=== PATIENT | male | born 1945 | race Caucasian/White ===

== ENCOUNTER 2019-05-26 16:32 | Inpatient (IN) | payer MEDICARE ==
[~2019-05-26] VITALS: Ht 167.6 cm; Wt 72.6 kg
[~2019-05-26 16:32] MED LIST: ASPI-630 PO; ATOR40TA59 PO; CLOP75TA PO; GLUC1CAP48 PO; LOSA25TA54 PO; METO25TA2 PO; MULT1TAB49 PO; OMEG-33 PO; PANT40TA77 PO; SPIR25TA5 PO; TAMS0.4C97 PO
[2019-05-26] MEDS ORDERED: SACU1TAB7 PO (18:12)
[2019-05-26] MEDS ORDERED: NITR0.4T22 SL (18:12)
[2019-05-26] MEDS ORDERED: ACETAMINOPHEN 325 MG TABLET. PO PRN (18:15)
[2019-05-26] MEDS ORDERED: POTASSIUM CL 20MEQ D5-0.45NACL 1,000 ML IV SCH (18:15)
[2019-05-26] MEDS ORDERED: MORPHINE SULFATE 2 MG/ML VIAL. IV PRN (18:15)
[2019-05-26 19:00] VITALS: BP 106/64
[2019-05-26] MEDS ORDERED: SPIR25TA5 PO (19:13)
[2019-05-26 19:26] LABS: BASO % 1 % (0-3); EOS # 0.1 x10^3/uL (0.0-0.7); EOS % 2 % (0-3); HEMATOCRIT 43.4 % (39.0-53.0); HEMOGLOBIN 14.9 g/dL (13.0-17.5); LYMPH # 1.1 x10^3/uL (1.0-4.8); LYMPH % 23 % (24-48); MEAN CORPUSCULAR HEMOGLOBIN 32 pg (25-35); MEAN CORPUSCULAR HGB CONC 34 g/dL (31-37); MEAN CORPUSCULAR VOLUME 94 fL (79-100); MONO # 0.5 x10^3/uL (0.0-1.1); MONO % 10 % (0-9); NEUT % 64 % (31-73); PLATELET COUNT 137 x10^3/uL (140-400); RED BLOOD COUNT 4.62 x10^6/uL (4.30-5.70); RED CELL DISTRIBUTION WIDTH 12.4 % (11.5-14.5); WHITE BLOOD COUNT 4.8 x10^3/uL (4.0-11.0)
[2019-05-26 19:54] LABS: ALBUMIN 3.7 g/dL (3.4-5.0); ALBUMIN/GLOBULIN RATIO 1.2 (1.0-1.7); CALCIUM 8.7 mg/dL (8.5-10.1); CREATININE 1.1 mg/dL (0.7-1.3); GFR 65.4; POTASSIUM 3.9 mmol/L (3.5-5.1); TOTAL BILIRUBIN 0.7 mg/dL (0.2-1.0); TOTAL PROTEIN 6.7 g/dL (6.4-8.2)
[2019-05-26] MEDS: SACUBITRIL/VALSARTAN 49/51MG TABLET. PO SCH (22:27)
[2019-05-26] MEDS: ATORVASTATIN CALCIUM 20 MG TABLET PO SCH (22:27)
[2019-05-26 22:54] VITALS: BP 94/52
[2019-05-26] MEDS ORDERED: CONTRAST GIVEN. MC PRN (23:15)
[2019-05-26] MEDS ORDERED: IOHEXOL 300 MG/ML 100ML VIAL. IV ONE (23:30)
--- NOTE | 2019-05-26 23:47 | RAD ---
CT abdomen and pelvis with contrast PQRS statement: CT scans at this facility use dose reduction including either automated exposure control, iterative reconstructions, and /or weight based radiation dosing via mA and kV modification when appropriate to reduce radiation dose to as low as reasonably achievable. HISTORY: Abdominal pain. TECHNIQUE: Helical CT imaging abdomen and pelvis with 75 mL Omnipaque 300 venous contrast. Abdomen findings: Lung bases unremarkable. Cardiomegaly. Grade 1 L4 anterolisthesis, lower lumbar disc disease and arthritic changes spinal canal and neural foraminal stenoses. At the pancreas uncinate is a 1 cm hypervascular lesion. Liver, gallbladder, adrenal glands, spleen and right kidney are unremarkable. Left renal lower pole parapelvic cysts. There is mild fold thickening of the third and fourth segments of the duodenum and of the proximal jejunum at the left upper quadrant abdomen. No bowel obstruction. Appendix is negative. Sigmoid diverticulosis. 3 center fatty umbilical abdominal wall hernia. No abdominal fluid or adenopathy. Pelvis findings: Bladder, prostate, rectum and bones are unremarkable. No fluid or adenopathy. IMPRESSION: 1. Mild fold thickening of the duodenum and proximal jejunum likely representing enteritis. No bowel obstruction. 2. The appendix is negative. 3. 1 cm hypervascular lesion of the pancreas uncinate. This raises the possibility of an islet cell tumor of the pancreas. An aneurysm within the pancreas would be a secondary consideration. 4. 3 center fatty umbilical abdominal wall hernia. Electronically signed by: Lencho Valenzuela MD (05/26/2019 11:44 PM) [id number]
[2019-05-27 02:36] VITALS: BP 92/57
[2019-05-27 06:56] LABS: BASO % 1 % (0-3); EOS # 0.1 x10^3/uL (0.0-0.7); EOS % 2 % (0-3); HEMATOCRIT 42.4 % (39.0-53.0); HEMOGLOBIN 14.4 g/dL (13.0-17.5); LYMPH # 0.9 x10^3/uL (1.0-4.8); LYMPH % 20 % (24-48); MEAN CORPUSCULAR HEMOGLOBIN 32 pg (25-35); MEAN CORPUSCULAR HGB CONC 34 g/dL (31-37); MEAN CORPUSCULAR VOLUME 94 fL (79-100); MONO # 0.5 x10^3/uL (0.0-1.1); MONO % 11 % (0-9); NEUT # 2.8 x10^3/uL (1.8-7.7); NEUT % 67 % (31-73); PLATELET COUNT 138 x10^3/uL (140-400); RED BLOOD COUNT 4.49 x10^6/uL (4.30-5.70); RED CELL DISTRIBUTION WIDTH 12.7 % (11.5-14.5); WHITE BLOOD COUNT 4.2 x10^3/uL (4.0-11.0)
[2019-05-27 07:00] VITALS: BP 100/61
[2019-05-27 07:26] LABS: CALCIUM 8.7 mg/dL (8.5-10.1); CREATININE 1.1 mg/dL (0.7-1.3); GFR 65.4; POTASSIUM 3.9 mmol/L (3.5-5.1)
[2019-05-27] MEDS: PANTOPRAZOLE 40 MG TABLET.DR. PO SCH (08:08)
[2019-05-27] MEDS: ASPIRIN CHEWABLE 81 MG TABLET. PO SCH (08:09)
[2019-05-27] MEDS: TAMSULOSIN 0.4 MG CAP.ER.24H. PO SCH (08:10)
[2019-05-27] MEDS: METOPROLOL SUCC 24HR ER 25 MG TAB.ER.24H. PO SCH (08:11)
[2019-05-27] MEDS: SPIRONOLACTONE 25 MG TABLET PO SCH (09:00)
--- NOTE | 2019-05-27 09:57 | CARD ---
MR#: [id number] Date of Study: 05/27/2019 Ordering Physician: FRANK GAYTAN, Referring Physician: FRANK GAYTAN Tech: Yamilka Ruiz RDCS APPROVED REPORT EXAM: Two-dimensional and M-mode echocardiogram with Doppler and color Doppler. Other Information Quality : Good INDICATION LV Function:Systolic Surgery/Intervention ICD/Pacemaker: 2D DIMENSIONS RVDd2.6 (2.9-3.5cm)Left Atrium(2D)4.1 (1.6-4.0cm) IVSd0.9 (0.7-1.1cm)Aortic Root(2D)3.0 (2.0-3.7cm) LVDd4.8 (3.9-5.9cm)LVOT Diameter2.2 (1.8-2.4cm) PWd0.9 (0.7-1.1cm)LVDs4.3 (2.5-4.0cm) FS (%) 10.0 %SV79.7 ml LVEF(%)20.0 (>50%) Aortic Valve AoV Peak Lee.87.5cm/sAoV VTI17.4cm AO Peak GR.3.1mmHgLVOT Peak Lee.71.5cm/s AO Mean GR.2mmHgAVA (VMAX)3.23cm2 STEPHANIE (VTI)3.10cm2 Mitral Valve MV E Bkyxmfoj68.9cm/sMV DECEL HAKF382id MV A Prqnwmxo253.6cm/sE/A Ratio0.5 Tricuspid Valve TR P. Dyssuiqa890gr/sRAP DXDSIWLT6wsZi TR Peak Gr.01oiWwVUGK60qqZi Pulmonary Vein S1 Arweffkh53.6cm/sD2 Mrcyosmy95.1cm/s LEFT VENTRICLE The left ventricle is normal size. There is normal left ventricular wall thickness. Left ventricle sy stolic function is severely impaired. The Ejection Fraction is 20-25%. Apical wall motion consistent with pacemaker activation. Transmitral Doppler flow pattern is Grade I-abnormal relaxation pattern. RIGHT VENTRICLE The right ventricle is normal size. The right ventricular systolic function is normal. There is a pac emaker/ICD lead in the right ventricle. ATRIA The left atrium is mildly dilated. The right atrium is mildly dilated. A pacemaker/ICD is seen in the right atrium consistent with history. The interatrial septum is intact with no evidence for an atria l septal defect or patent foramen ovale as noted on 2-D or Doppler imaging. AORTIC VALVE The aortic valve is calcified but opens well. Doppler and Color Flow revealed no significant aortic r egurgitation. There is no significant aortic valvular stenosis. MITRAL VALVE The mitral valve is normal in structure and function. There is no evidence of mitral valve prolapse. There is no mitral valve stenosis. Doppler and Color-flow revealed trace mitral regurgitation. TRICUSPID VALVE The tricuspid valve is normal in structure and function. Doppler and Color Flow revealed mild tricusp id regurgitation. There is mild pulmonary hypertension. The PA pressure was estimated at 35 mmHg. The re is no tricuspid valve stenosis. PULMONIC VALVE The pulmonic valve is not well visualized. Doppler and Color Flow revealed trace pulmonic valvular re gurgitation. There is no pulmonic valvular stenosis. GREAT VESSELS The aortic root is normal in size. The ascending aorta is mildly dilated at 3.7 cm. The IVC was not v isualized. PERICARDIAL EFFUSION There is no evidence of significant pericardial effusion. Critical Notification Critical Value: No <Conclusion> Left ventricle systolic function is severely impaired. The Ejection Fraction is 20-25%. Transmitral Doppler flow pattern is Grade I-abnormal relaxation pattern. There is a pacemaker/ICD lead in the right atrium and right ventricle. Trace mitral regurgitation. Mild tricuspid regurgitation. The PA pressure was estimated at 35 mmHg. There is no evidence of significant pericardial effusion. Signed by : Riley Ugalde, Electronically Approved : 05/27/2019 09:57:11
[2019-05-27] MEDS: SACUBITRIL/VALSARTAN 49/51MG TABLET. PO SCH ×2 (10:01→21:17)
--- NOTE | 2019-05-27 10:02 | RAD ---
CHEST PA LATERAL History: Abdominal pain. Comparison: July 08, 2019. Findings: Left transvenous pacemaker/ICD, unchanged. Left basilar subsegmental atelectasis. Unchanged heart size. No focal consolidation. No pleural effusion. Impression: 1. Left basilar subsegmental atelectasis. Electronically signed by: Milton Wu DO (05/27/2019 9:59 AM) [id number]
--- NOTE | 2019-05-27 10:03 | PDOC2 ---
GI CONSULT Reason For Consult: Abd pain HPI: HPI: Pleasant 74 y/o male who saw Dr. Lynn in the office yesterday and was directly admitted. Reports 3 weeks of upper abdominal discomfort ("just hurts" - mostly RUQ and sometimes spreading to epigastrium and LUQ, maybe wrapping around right side some). Mostly bothersome after eating. Reports h/o "what they thought was gallbladder attacks but the test was okay" - this discomfort is similar to those instances. Had a GB US at a few years ago - says they recommended HIDA w/ PCP (not done). No n/v, dysphagia, constipation, hematochezia, melena, or change in appetite. Had a couple instances of diarrhea that resolved. His scale is broken but he assumes no weight loss. H/o occasional indigestion - takes Tums and also on pantoprazole QD "because of the heart meds." Sometimes umbilical hernia hurts if he pushes on it. EGD and colonoscopy w/ Dr. Bhandari in 2014 for abd pain and weight loss showed small hiatal hernia and diverticulosis. No liver, pancreas, or PUD history. H/o CAD on Plavix and ASA. On CT: mild fold thickening in duodenum and proximal jejunum, 1cm hypervascular lesion in pancreas uncinate (?islet cell tumor), and umbilical abd wall hernia. PMH: PMH: cardiomyopathy, CAD w/ stent, HTN, HLD, BPH right shoulder scraping, tonsillectomy, skin excision FH: Family History: Other (sister - GB disease) Social History: Smoke: No ALCOHOL: occassional Drugs: None ROS: GEN: Denies fevers, chills, sweats HEENT: Denies blurred vision, sore throat CV: Denies chest pain RESP: Denies shortness of air, cough GI: Per HPI : Denies hematuria, dysuria ENDO: Denies weight changes NEURO: Denies confusion, dizziness MSK: Denies weakness, joint pain/swelling SKIN: Denies jaundice, pruritus Vitals: Vitals: Vital Signs Date Time Temp Pulse Resp B/P (MAP) Pulse Ox O2 Delivery O2 Flow Rate FiO2 05/27/19 10:01 74 100/61 05/27/19 07:00 99.0 14 98 Room Air 99.0 Labs: Labs: Laboratory Tests Test 05/26/19 19:15 9/18/19 05:40 White Blood Count 4.8 x10^3/uL (4.0-11.0) 4.2 x10^3/uL (4.0-11.0) Red Blood Count 4.62 x10^6/uL (4.30-5.70) 4.49 x10^6/uL (4.30-5.70) Hemoglobin 14.9 g/dL (13.0-17.5) 14.4 g/dL (13.0-17.5) Hematocrit 43.4 % (39.0-53.0) 42.4 % (39.0-53.0) Mean Corpuscular Volume 94 fL (79-100) 94 fL (79-100) Mean Corpuscular Hemoglobin 32 pg (25-35) 32 pg (25-35) Mean Corpuscular Hemoglobin Concent 34 g/dL (31-37) 34 g/dL (31-37) Red Cell Distribution Width 12.4 % (11.5-14.5) 12.7 % (11.5-14.5) Platelet Count 137 x10^3/uL (140-400) 138 x10^3/uL (140-400) Neutrophils (%) (Auto) 64 % (31-73) 67 % (31-73) Lymphocytes (%) (Auto) 23 % (24-48) 20 % (24-48) Monocytes (%) (Auto) 10 % (0-9) 11 % (0-9) Eosinophils (%) (Auto) 2 % (0-3) 2 % (0-3) Basophils (%) (Auto) 1 % (0-3) 1 % (0-3) Neutrophils # (Auto) 3.0 x10^3/uL (1.8-7.7) 2.8 x10^3/uL (1.8-7.7) Lymphocytes # (Auto) 1.1 x10^3/uL (1.0-4.8) 0.9 x10^3/uL (1.0-4.8) Monocytes # (Auto) 0.5 x10^3/uL (0.0-1.1) 0.5 x10^3/uL (0.0-1.1) Eosinophils # (Auto) 0.1 x10^3/uL (0.0-0.7) 0.1 x10^3/uL (0.0-0.7) Basophils # (Auto) 0.0 x10^3/uL (0.0-0.2) 0.0 x10^3/uL (0.0-0.2) Sodium Level 142 mmol/L (136-145) 143 mmol/L (136-145) Potassium Level 3.9 mmol/L (3.5-5.1) 3.9 mmol/L (3.5-5.1) Chloride Level 108 mmol/L (98-107) 109 mmol/L (98-107) Carbon Dioxide Level 25 mmol/L (21-32) 25 mmol/L (21-32) Anion Gap 9 (6-14) 9 (6-14) Blood Urea Nitrogen 17 mg/dL (8-26) 14 mg/dL (8-26) Creatinine 1.1 mg/dL (0.7-1.3) 1.1 mg/dL (0.7-1.3) Estimated GFR (Cockcroft-Gault) 65.4 65.4 BUN/Creatinine Ratio 15 (6-20) Glucose Level 84 mg/dL (70-99) 95 mg/dL (70-99) Calcium Level 8.7 mg/dL (8.5-10.1) 8.7 mg/dL (8.5-10.1) Total Bilirubin 0.7 mg/dL (0.2-1.0) Aspartate Amino Transf (AST/SGOT) 19 U/L (15-37) Alanine Aminotransferase (ALT/SGPT) 22 U/L (16-63) Alkaline Phosphatase 65 U/L (46-116) Total Protein 6.7 g/dL (6.4-8.2) Albumin 3.7 g/dL (3.4-5.0) Albumin/Globulin Ratio 1.2 (1.0-1.7) Amylase Level 50 U/L (25-115) Lipase 140 U/L (73-393) Allergies: Coded Allergies: ramipril (Verified Allergy, Intermediate, 05/27/19) cough thimerosal (Verified Allergy, Intermediate, 04/25/15) reddened eyes Medications: Current Medications Medications (Trade) Dose Ordered Sig/Ren Route PRN Reason Start Time Stop Time Status Last Admin Dose Admin Potassium Chloride/Dextrose/ Sod Cl 1,000 ml @ 60 mls/hr [id number] IV 05/26/19 18:15 05/26/19 19:47 Metronidazole 100 ml @ 100 mls/hr Q8HRS IV 05/26/19 22:00 05/27/19 07:19 DC 05/27/19 05:50 Levofloxacin/ Dextrose 100 ml @ 100 mls/hr Q24H IV 05/26/19 19:00 05/27/19 07:19 DC 05/26/19 19:47 Aspirin (Children'S Aspirin) 81 mg DAILY PO 05/27/19 09:00 05/27/19 08:15 Atorvastatin Calcium (Lipitor) 20 mg QHS PO 05/26/19 21:00 05/26/19 22:27 Metoprolol Succinate (Toprol Xl) 25 mg DAILY PO 05/27/19 09:00 05/27/19 08:15 Pantoprazole Sodium (Protonix) 40 mg DAILYAC PO 05/27/19 07:30 05/27/19 08:15 Sacubitril/ Valsartan (Entresto 49 Mg-51 Mg) 1 tab BID PO 05/26/19 21:00 05/27/19 10:01 Tamsulosin HCl (Flomax) 0.4 mg DAILY PO 05/27/19 09:00 05/27/19 08:15 Imaging: Imaging: Echo <Conclusion> Left ventricle systolic function is severely impaired. The Ejection Fraction is 20-25%. Transmitral Doppler flow pattern is Grade I-abnormal relaxation pattern. There is a pacemaker/ICD lead in the right atrium and right ventricle. Trace mitral regurgitation. Mild tricuspid regurgitation. The PA pressure was estimated at 35 mmHg. There is no evidence of significant pericardial effusion. CXR Impression: 1. Left basilar subsegmental atelectasis. CT A/P IMPRESSION: 1. Mild fold thickening of the duodenum and proximal jejunum likely representing enteritis. No bowel obstruction. 2. The appendix is negative. 3. 1 cm hypervascular lesion of the pancreas uncinate. This raises the possibility of an islet cell tumor of the pancreas. An aneurysm within the pancreas would be a secondary consideration. 4. 3 center fatty umbilical abdominal wall hernia. PE: GEN: NAD HEENT: Atraumatic, PERRL LUNGS: CTAB HEART: RRR ABD: NABS, S/ND - does not seem particularly tender this morning EXTREMITY: No edema SKIN: No rashes, no jaundice NEURO/PSYCH: A & O �3 A/P: A/P: Upper abd discomfort (ongoing), diarrhea (resolved) Abnormal CT - mild fold thickening in duodenum and proximal jejunum, 1cm hypervascular lesion in pancreas uncinate (?islet cell tumor), and umbilical abd wall hernia. GERD - on PPI and Tums; hiatal hernia on EGD in 2014 CRC screen - UTD Diverticulosis Thrombocytopenia Cardiomyopathy and CAD on Plavix and ASA -- Will review w/ Dr. Meng. TANMAY BURLESON May 27, 2019 10:03
--- NOTE | 2019-05-27 10:07 | PDOC2 ---
GI CONSULT Vitals: Vitals: Vital Signs Allergies: Coded Allergies: ramipril (Verified Allergy, Intermediate, 05/27/19) cough thimerosal (Verified Allergy, Intermediate, 04/25/15) reddened eyes A/P: A/P: Please see GI consult for this same date. TANMAY BURLESON May 27, 2019 10:07
[2019-05-27] MEDS ORDERED: HYDROcodone/APAP 5/325MG 1 TAB TABLET PO PRN (10:30)
--- NOTE | 2019-05-27 10:39 | PDOC ---
Provider Note Provider Note history and physical dictated # [id number] FRANK GAYTAN MD May 27, 2019 10:39
--- NOTE | 2019-05-27 10:42 | PDOC2 ---
CONSULT Date of Consult Date of Consult DATE: 05/27/19 TIME: 10:37 History of Present Illness Reason for Visit: The patient is a 74 year old male who was admitted after seeing his PCP, Dr Lynn. The patient has been experiencing abdominal pain over the last 3 weeks. The pain can migrate moving from the right to the mid abdomen. The pain is at times achy and dull, but can intensify. He denies nausea or vomiting, but does report some limited diarrhea. Past Medical History Past Medical History enlarged prostate, [place], CAD, cardiomyopathy, hypertension Past Surgical History Past Surgical History pacemaker, shoulder surgery, excision of skin lesion from shoulder Social History No ALCOHOL: occassional Drugs: None Current Medications Current Medications Current Medications Potassium Chloride/Dextrose/ Sod Cl 1,000 ml @ 60 mls/hr [id number] IV Last administered on 05/26/19at 19:47; Start 05/26/19 at 18:15; Stop 05/27/19 at 10:28; Status DC Morphine Sulfate (Morphine Sulfate) 1 mg PRN Q4HRS PRN IV PAIN; Start 05/26/19 at 18:15 Acetaminophen (Tylenol) 325 mg PRN Q6HRS PRN PO MILD PAIN / TEMP; Start 05/26/19 at 18:15 Metronidazole 100 ml @ 100 mls/hr Q8HRS IV Last administered on 05/27/19at 05:50; Start 05/26/19 at 22:00; Stop 05/27/19 at 07:19; Status DC Levofloxacin/ Dextrose 100 ml @ 100 mls/hr Q24H IV Last administered on 05/26/19at 19:47; Start 05/26/19 at 19:00; Stop 05/27/19 at 07:19; Status DC Aspirin (Children'S Aspirin) 81 mg DAILY PO Last administered on 05/27/19at 08:15; Start 05/27/19 at 09:00 Atorvastatin Calcium (Lipitor) 20 mg QHS PO Last administered on 05/26/19at 22:27; Start 05/26/19 at 21:00 Metoprolol Succinate (Toprol Xl) 25 mg DAILY PO Last administered on 05/27/19at 08:15; Start 05/27/19 at 09:00 Pantoprazole Sodium (Protonix) 40 mg DAILYAC PO Last administered on 05/27/19at 08:15; Start 05/27/19 at 07:30 Sacubitril/ Valsartan (Entresto 49 Mg-51 Mg) 1 tab BID PO Last administered on 05/27/19at 10:01; Start 05/26/19 at 21:00 Tamsulosin HCl (Flomax) 0.4 mg DAILY PO Last administered on 05/27/19at 08:15; Start 05/27/19 at 09:00 Spironolactone (Aldactone) 25 mg DAILY PO ; Start 05/27/19 at 09:00 Iohexol (Omnipaque 300 Mg/ml) 75 ml 1X ONCE IV ; Start 05/26/19 at 23:30; Stop 05/26/19 at 23:31; Status DC Info (CONTRAST GIVEN -- Rx MONITORING) 1 each PRN DAILY PRN MC SEE COMMENTS; Start 05/26/19 at 23:15; Stop 05/28/19 at 23:14 Acetaminophen/ Hydrocodone Bitart (Lortab 5/325) 1 tab PRN Q4HRS PRN PO MODERATE PAIN; Start 05/27/19 at 10:30 Active Scripts Active Reported Spironolactone 25 Mg Tablet 1 Tab PO DAILY Entresto 49 mg-51 mg Tablet (Sacubitril/Valsartan) 1 Each Tablet 1 Each PO BID NITROGLYCERIN SubLingual (Nitroglycerin) 0.4 Mg Tab.subl 1 Tab SL UD Pantoprazole Sodium (Pantoprazole Sodium) 40 Mg Tablet.dr 40 Mg PO DAILY Toprol Xl (Metoprolol Succinate) 25 Mg Tab.er.24h 25 Mg PO DAILY Flomax (Tamsulosin Hcl) 0.4 Mg Cap.er.24h 0.4 Mg PO DAILY Clopidogrel (Clopidogrel Bisulfate) 75 Mg Tablet 75 Mg PO DAILY Aspirin 81 Mg Tab.chew 81 Mg PO DAILY Atorvastatin Calcium 40 Mg Tablet 40 Mg PO HS Losartan Potassium (Losartan Potassium) 25 Mg Tablet 25 Mg PO DAILY Allergies Allergies: Coded Allergies: ramipril (Verified Allergy, Intermediate, 05/27/19) cough thimerosal (Verified Allergy, Intermediate, 04/25/15) reddened eyes ROS General: No: Chills, Night Sweats, Fatigue, Malaise, Appetite, Other PSYCHOLOGICAL ROS: No: Anxiety, Behavioral Disorder, Concentration difficultie, Decreased libido, Depression, Disorientation, Hallucinations, Hostility, Irritablity, Memory difficulties, Mood Swings, Obsessive thoughts, Physical abuse, Sexual abuse, Sleep disturbances, Suicidal ideation, Other Eyes: No Blurry vision, No Decreased vision, No Double vision, No Dry eyes, No Excessive tearing, No Eye Pain, No Itchy Eyes, No Loss of vision, No Photophobia, No Scotomata, No Uses contacts, No Uses glasses, No Other HEENT: No: Heacaches, Visual Changes, Hearing change, Nasal congestion, Nasal discharge, Oral lesions, Sinus pain, Sore Throat, Epistaxis, Sneezing, Snoring, Tinnitus, Vertigo, Vocal changes, Other ALLERGY AND IMMUNOLOGY: No: Hives, Insect Bite Sensitivity, Itchy/Watery Eyes, Nasal Congestion, Post Nasal Drip, Seasonal Allergies, Other Hematological and Lymphatic: No: Bleeding Problems, Blood Clots, Blood Transfusions, Brusing, Night Sweats, Pallor, Swollen Lymph Nodes, Other ENDOCRINE: No: Breast Changes, Galactorrhea, Hair Pattern Changes, Hot Flashes, Malaise/lethargy, Mood Swings, Palpitations, Polydipsia/polyuria, Skin Changes, Temperature Intolerance, Unexpected Weight Changes, Other Cardiovascular: No Chest Pain, No Palpitations, No Orthopnea, No Paroxysmal Noc. Dyspnea, No Edema, No Lt Headedness, No Other Gastrointestinal: Yes Abdominal Pain Genitourinary: No Dysuria, No Frequency, No Incontinence, No Hematuria, No Retention, No Discharge, No Urgency, No Pain, No Flank Pain, No Other, No , No , No , No , No , No , No Musculoskeletal: No Gait Disturbance, No Joint Pain, No Joint Stiffness, No Joint Swelling, No Muscle Pain, No Muscular Weakness, No Pain In:, No Swelling In:, No Other Neurological: No Behavorial Changes, No Bowel/Bladder ControlChng, No Confusion, No Dizziness, No Gait Disturbance, No Headaches, No Impaired Coord/balance, No Memory Loss, No Numbness/Tingling, No Seizures, No Speech Problems, No Tremors, No Visual Changes, No Weakness, No Other Skin: No Dry Skin, No Eczema, No Hair Changes, No Lumps, No Mole Changes, No Mottling, No Nail Changes, No Pruritus, No Rash, No Skin Lesion Changes, No Other, No Acne Physical Exam General: Alert, Oriented X3, Cooperative HEENT: Atraumatic Lungs: Clear to auscultation Heart: Regular rate Abdomen: Soft Extremities: No clubbing (mildly tender just right of midline in upper abdomen, small reducible umbilical hernia) Skin: No rashes, No breakdown Neuro: Normal speech Psych/Mental Status: Mental status NL MUSCULOSKELETAL: No joint tenderness, No deformity Vitals VITALS Vital Signs Date Time Temp Pulse Resp B/P (MAP) Pulse Ox O2 Delivery O2 Flow Rate FiO2 05/27/19 10:01 74 100/61 05/27/19 07:00 99.0 14 98 Room Air 99.0 Labs Labs Laboratory Tests Test 05/26/19 19:15 05/27/19 05:40 White Blood Count 4.8 x10^3/uL (4.0-11.0) 4.2 x10^3/uL (4.0-11.0) Red Blood Count 4.62 x10^6/uL (4.30-5.70) 4.49 x10^6/uL (4.30-5.70) Hemoglobin 14.9 g/dL (13.0-17.5) 14.4 g/dL (13.0-17.5) Hematocrit 43.4 % (39.0-53.0) 42.4 % (39.0-53.0) Mean Corpuscular Volume 94 fL (79-100) 94 fL (79-100) Mean Corpuscular Hemoglobin 32 pg (25-35) 32 pg (25-35) Mean Corpuscular Hemoglobin Concent 34 g/dL (31-37) 34 g/dL (31-37) Red Cell Distribution Width 12.4 % (11.5-14.5) 12.7 % (11.5-14.5) Platelet Count 137 x10^3/uL (140-400) 138 x10^3/uL (140-400) Neutrophils (%) (Auto) 64 % (31-73) 67 % (31-73) Lymphocytes (%) (Auto) 23 % (24-48) 20 % (24-48) Monocytes (%) (Auto) 10 % (0-9) 11 % (0-9) Eosinophils (%) (Auto) 2 % (0-3) 2 % (0-3) Basophils (%) (Auto) 1 % (0-3) 1 % (0-3) Neutrophils # (Auto) 3.0 x10^3/uL (1.8-7.7) 2.8 x10^3/uL (1.8-7.7) Lymphocytes # (Auto) 1.1 x10^3/uL (1.0-4.8) 0.9 x10^3/uL (1.0-4.8) Monocytes # (Auto) 0.5 x10^3/uL (0.0-1.1) 0.5 x10^3/uL (0.0-1.1) Eosinophils # (Auto) 0.1 x10^3/uL (0.0-0.7) 0.1 x10^3/uL (0.0-0.7) Basophils # (Auto) 0.0 x10^3/uL (0.0-0.2) 0.0 x10^3/uL (0.0-0.2) Sodium Level 142 mmol/L (136-145) 143 mmol/L (136-145) Potassium Level 3.9 mmol/L (3.5-5.1) 3.9 mmol/L (3.5-5.1) Chloride Level 108 mmol/L (98-107) 109 mmol/L (98-107) Carbon Dioxide Level 25 mmol/L (21-32) 25 mmol/L (21-32) Anion Gap 9 (6-14) 9 (6-14) Blood Urea Nitrogen 17 mg/dL (8-26) 14 mg/dL (8-26) Creatinine 1.1 mg/dL (0.7-1.3) 1.1 mg/dL (0.7-1.3) Estimated GFR (Cockcroft-Gault) 65.4 65.4 BUN/Creatinine Ratio 15 (6-20) Glucose Level 84 mg/dL (70-99) 95 mg/dL (70-99) Calcium Level 8.7 mg/dL (8.5-10.1) 8.7 mg/dL (8.5-10.1) Total Bilirubin 0.7 mg/dL (0.2-1.0) Aspartate Amino Transf (AST/SGOT) 19 U/L (15-37) Alanine Aminotransferase (ALT/SGPT) 22 U/L (16-63) Alkaline Phosphatase 65 U/L (46-116) Total Protein 6.7 g/dL (6.4-8.2) Albumin 3.7 g/dL (3.4-5.0) Albumin/Globulin Ratio 1.2 (1.0-1.7) Amylase Level 50 U/L (25-115) Lipase 140 U/L (73-393) Laboratory Tests Test 05/26/19 19:15 05/27/19 05:40 White Blood Count 4.8 x10^3/uL (4.0-11.0) 4.2 x10^3/uL (4.0-11.0) Red Blood Count 4.62 x10^6/uL (4.30-5.70) 4.49 x10^6/uL (4.30-5.70) Hemoglobin 14.9 g/dL (13.0-17.5) 14.4 g/dL (13.0-17.5) Hematocrit 43.4 % (39.0-53.0) 42.4 % (39.0-53.0) Mean Corpuscular Volume 94 fL (79-100) 94 fL (79-100) Mean Corpuscular Hemoglobin 32 pg (25-35) 32 pg (25-35) Mean Corpuscular Hemoglobin Concent 34 g/dL (31-37) 34 g/dL (31-37) Red Cell Distribution Width 12.4 % (11.5-14.5) 12.7 % (11.5-14.5) Platelet Count 137 x10^3/uL (140-400) 138 x10^3/uL (140-400) Neutrophils (%) (Auto) 64 % (31-73) 67 % (31-73) Lymphocytes (%) (Auto) 23 % (24-48) 20 % (24-48) Monocytes (%) (Auto) 10 % (0-9) 11 % (0-9) Eosinophils (%) (Auto) 2 % (0-3) 2 % (0-3) Basophils (%) (Auto) 1 % (0-3) 1 % (0-3) Neutrophils # (Auto) 3.0 x10^3/uL (1.8-7.7) 2.8 x10^3/uL (1.8-7.7) Lymphocytes # (Auto) 1.1 x10^3/uL (1.0-4.8) 0.9 x10^3/uL (1.0-4.8) Monocytes # (Auto) 0.5 x10^3/uL (0.0-1.1) 0.5 x10^3/uL (0.0-1.1) Eosinophils # (Auto) 0.1 x10^3/uL (0.0-0.7) 0.1 x10^3/uL (0.0-0.7) Basophils # (Auto) 0.0 x10^3/uL (0.0-0.2) 0.0 x10^3/uL (0.0-0.2) Sodium Level 142 mmol/L (136-145) 143 mmol/L (136-145) Potassium Level 3.9 mmol/L (3.5-5.1) 3.9 mmol/L (3.5-5.1) Chloride Level 108 mmol/L (98-107) 109 mmol/L (98-107) Carbon Dioxide Level 25 mmol/L (21-32) 25 mmol/L (21-32) Anion Gap 9 (6-14) 9 (6-14) Blood Urea Nitrogen 17 mg/dL (8-26) 14 mg/dL (8-26) Creatinine 1.1 mg/dL (0.7-1.3) 1.1 mg/dL (0.7-1.3) Estimated GFR (Cockcroft-Gault) 65.4 65.4 BUN/Creatinine Ratio 15 (6-20) Glucose Level 84 mg/dL (70-99) 95 mg/dL (70-99) Calcium Level 8.7 mg/dL (8.5-10.1) 8.7 mg/dL (8.5-10.1) Total Bilirubin 0.7 mg/dL (0.2-1.0) Aspartate Amino Transf (AST/SGOT) 19 U/L (15-37) Alanine Aminotransferase (ALT/SGPT) 22 U/L (16-63) Alkaline Phosphatase 65 U/L (46-116) Total Protein 6.7 g/dL (6.4-8.2) Albumin 3.7 g/dL (3.4-5.0) Albumin/Globulin Ratio 1.2 (1.0-1.7) Amylase Level 50 U/L (25-115) Lipase 140 U/L (73-393) Images Images CT abdomen: IMPRESSION: 1. Mild fold thickening of the duodenum and proximal jejunum likely representing enteritis. No bowel obstruction. 2. The appendix is negative. 3. 1 cm hypervascular lesion of the pancreas uncinate. This raises the possibility of an islet cell tumor of the pancreas. An aneurysm within the pancreas would be a secondary consideration. 4. 3 center fatty umbilical abdominal wall hernia. Assessment/Plan Assessment/Plan 74 year old male with abdominal pain, CT findings noted; suspect enteritis, small 1 cm pancreatic mass likely incidental. No immediate surgical indications, GI consulted and await their evaluation. Consider a PIPIDA scan. TERE LOPES MD May 27, 2019 10:42
--- NOTE | 2019-05-27 10:52 | PDOC2 ---
GENEVIEVE MCHUGH MERCHANDISING DIRECTOR 05/27/19 1052: CARDIAC CONSULT DATE OF CONSULT Date of Consult DATE: 05/27/19 TIME: 10:50 REASON FOR CONSULT Reason for Consult: hx of cardiomyopathy REFERRING PHYSICIAN Referring Physician: Leah SOURCE Source: Chart review, Patient HISTORY OF PRESENT ILLNESS HISTORY OF PRESENT ILLNESS This is a pleasant 74 yo male admitted for complains of abdominal pain. Reports that this just started this week. His abd is tender especially when pressed. Reports no nause or vomiting and actually had a BM yesterday that was formed. Denies any chest pain, SOA. Consult is for cardiomyopathy which is not new for him but his EF is now down from 35% to 20s. No PND, orthopnea, palpitations, fr equent dizziness, or passing out. No leg swelling. He weighs himself everyday till his scale broke last week. He follows his diet restriction and FR. His activity tolerance has not chnaged and no GUPTA nor exertional CP PAST MEDICAL HISTORY Cardiovascular: AFIB, CAD, CHF, HTN, Hyperlipidemia, Other (Cardiomyopathy) Pulmonary: No pertinent hx CENTRAL NERVOUS SYSTEM: Other (no pertinent history) GI: GERD Heme/Onc: No pertinent hx Hepatobiliary: No pertinent hx Psych: No pertinent hx Musculoskeletal: Osteoarthritis Rheumatologic: No pertinent hx Infectious disease: No pertinent hx ENT: Other (cataract) Renal/: Benign prostatic enlarg. Endocrine: No pertinent hx Dermatology: Other (skin CA to back with removal) PAST SURGICAL HISTORY Past Surgical History: Pacemaker (AICD), Arthroscopy (right shoulder), Other (PCI/stents remotely) FAMILY HISTORY Family History: Coronary Artery Disease (father and brother) SOCIAL HISTORY Smoke: Quit (remotely) ALCOHOL: none Drugs: None Lives: with Family CURRENT MEDICATIONS CURRENT MEDICATIONS Current Medications Medications (Trade) Dose Ordered Sig/Ren Route PRN Reason Start Time Stop Time Status Last Admin Dose Admin Potassium Chloride/Dextrose/ Sod Cl 1,000 ml @ 60 mls/hr [id number] IV 05/26/19 18:15 05/27/19 10:28 DC 05/26/19 19:47 Metronidazole 100 ml @ 100 mls/hr Q8HRS IV 05/26/19 22:00 05/27/19 07:19 DC 05/27/19 05:50 Levofloxacin/ Dextrose 100 ml @ 100 mls/hr Q24H IV 05/26/19 19:00 05/27/19 07:19 DC 05/26/19 19:47 Aspirin (Children'S Aspirin) 81 mg DAILY PO 05/27/19 09:00 05/27/19 08:15 Atorvastatin Calcium (Lipitor) 20 mg QHS PO 05/26/19 21:00 05/26/19 22:27 Metoprolol Succinate (Toprol Xl) 25 mg DAILY PO 05/27/19 09:00 05/27/19 08:15 Pantoprazole Sodium (Protonix) 40 mg DAILYAC PO 05/27/19 07:30 05/27/19 08:15 Sacubitril/ Valsartan (Entresto 49 Mg-51 Mg) 1 tab BID PO 05/26/19 21:00 05/27/19 10:01 Tamsulosin HCl (Flomax) 0.4 mg DAILY PO 05/27/19 09:00 05/27/19 08:15 ALLERGIES ALLERGIES: Coded Allergies: ramipril (Verified Allergy, Intermediate, 05/27/19) cough thimerosal (Verified Allergy, Intermediate, 04/25/15) reddened eyes ROS Review of System 14 point ROS evaluated with pertinent positives noted per HPI PHYSICAL EXAM General: Alert, Oriented X3, Cooperative, No acute distress HEENT: Atraumatic, Mucous membr. moist/pink Lungs: Other (diminished bases) Heart: Regular rate, Normal S1, Normal S2 Abdomen: Other (distended with diffuse tenderness) Extremities: No cyanosis, No edema Skin: No breakdown, No significant lesion Neuro: Normal speech, Sensation intact Psych/Mental Status: Mental status NL, Mood NL MUSCULOSKELETAL: Osteoarthritic changes both hands VITALS/I&O VITALS/I&O: Vital Signs Date Time Temp Pulse Resp B/P (MAP) Pulse Ox O2 Delivery O2 Flow Rate FiO2 05/27/19 10:01 74 100/61 05/27/19 07:00 99.0 14 98 Room Air 99.0 LABS Lab: Laboratory Tests Test 05/26/19 19:15 05/27/19 05:40 White Blood Count 4.8 x10^3/uL (4.0-11.0) 4.2 x10^3/uL (4.0-11.0) Red Blood Count 4.62 x10^6/uL (4.30-5.70) 4.49 x10^6/uL (4.30-5.70) Hemoglobin 14.9 g/dL (13.0-17.5) 14.4 g/dL (13.0-17.5) Hematocrit 43.4 % (39.0-53.0) 42.4 % (39.0-53.0) Mean Corpuscular Volume 94 fL (79-100) 94 fL (79-100) Mean Corpuscular Hemoglobin 32 pg (25-35) 32 pg (25-35) Mean Corpuscular Hemoglobin Concent 34 g/dL (31-37) 34 g/dL (31-37) Red Cell Distribution Width 12.4 % (11.5-14.5) 12.7 % (11.5-14.5) Platelet Count 137 x10^3/uL (140-400) L 138 x10^3/uL (140-400) L Neutrophils (%) (Auto) 64 % (31-73) 67 % (31-73) Lymphocytes (%) (Auto) 23 % (24-48) L 20 % (24-48) L Monocytes (%) (Auto) 10 % (0-9) H 11 % (0-9) H Eosinophils (%) (Auto) 2 % (0-3) 2 % (0-3) Basophils (%) (Auto) 1 % (0-3) 1 % (0-3) Neutrophils # (Auto) 3.0 x10^3/uL (1.8-7.7) 2.8 x10^3/uL (1.8-7.7) Lymphocytes # (Auto) 1.1 x10^3/uL (1.0-4.8) 0.9 x10^3/uL (1.0-4.8) L Monocytes # (Auto) 0.5 x10^3/uL (0.0-1.1) 0.5 x10^3/uL (0.0-1.1) Eosinophils # (Auto) 0.1 x10^3/uL (0.0-0.7) 0.1 x10^3/uL (0.0-0.7) Basophils # (Auto) 0.0 x10^3/uL (0.0-0.2) 0.0 x10^3/uL (0.0-0.2) Sodium Level 142 mmol/L (136-145) 143 mmol/L (136-145) Potassium Level 3.9 mmol/L (3.5-5.1) 3.9 mmol/L (3.5-5.1) Chloride Level 108 mmol/L (98-107) H 109 mmol/L (98-107) H Carbon Dioxide Level 25 mmol/L (21-32) 25 mmol/L (21-32) Anion Gap 9 (6-14) 9 (6-14) Blood Urea Nitrogen 17 mg/dL (8-26) 14 mg/dL (8-26) Creatinine 1.1 mg/dL (0.7-1.3) 1.1 mg/dL (0.7-1.3) Estimated GFR (Cockcroft-Gault) 65.4 65.4 BUN/Creatinine Ratio 15 (6-20) Glucose Level 84 mg/dL (70-99) 95 mg/dL (70-99) Calcium Level 8.7 mg/dL (8.5-10.1) 8.7 mg/dL (8.5-10.1) Total Bilirubin 0.7 mg/dL (0.2-1.0) Aspartate Amino Transferase (AST) 19 U/L (15-37) Alanine Aminotransferase (ALT) 22 U/L (16-63) Alkaline Phosphatase 65 U/L (46-116) Total Protein 6.7 g/dL (6.4-8.2) Albumin 3.7 g/dL (3.4-5.0) Albumin/Globulin Ratio 1.2 (1.0-1.7) Amylase Level 50 U/L (25-115) Lipase 140 U/L (73-393) Laboratory Tests 05/26/19 19:15 05/27/19 05:40 Laboratory Tests 05/26/19 19:15 05/27/19 05:[address] from [facility] 1. No bowel obstruction, ascites, or acute inflammatory process. The appendix is normal. 2. Cholelithiasis without gallbladder wall thickening or pericholecystic fluid. 3. Mild diverticulosis coli. By my electronic signature, I attest that I have personally reviewed the images for this examination and formulated the interpretations and opinions expressed in this report 09/10/2018 4:16 AM. ECHOCARDIOGRAM ECHOCARDIOGRAM <Conclusion> Left ventricle systolic function is severely impaired. The Ejection Fraction is 20-25%. Transmitral Doppler flow pattern is Grade I-abnormal relaxation pattern. There is a pacemaker/ICD lead in the right atrium and right ventricle. Trace mitral regurgitation. Mild tricuspid regurgitation. The PA pressure was estimated at 35 mmHg. There is no evidence of significant pericardial effusion. DATE: 05/27/19 0933 11/26/2016 from Left Ventricle Normal size and wall thickness. Severe LV Systolic Dysfunction with LVEF ~=25%. The anteroseptal and apical segments are akinetic with global hypokinesis otherwise. No LV mass or thrombus visualized. Probably normal LV Diastolic function. Reduced septal and lateral e' velocities noted, but other parameters are not clearly diagnostic of LV diastolic dysfunction. Right Ventricle Normal size and wall thickness. Preserved RV systolic function. Pacemaker lead present in the ventricle. Left Atrium Normal size. Right Atrium Normal size. IVC/SVC Normal central venous pressure (0-5 mm Hg). Mitral Valve Normal valve structure. No stenosis. Trace regurgitation. Tricuspid Valve Normal valve structure. No stenosis. Trace regurgitation. Aortic Valve Normal valve structure. No stenosis. No regurgitation. Pulmonary Normal valve structure. No stenosis. Trace regurgitation. The pulmonary artery was not well seen. Aorta Normal aortic root and ascending aorta size. No Doppler evidence of aortic coarctation Pericardium No pericardial effusion. STRESS TEST STRESS TEST 11/26/2016 from SUMMARY/OPINION: This study is abnormal with evidence of a prior anterior infarction with limited border zone reversibility. This infarct extends from the mid anteroseptal area and involves the distal anterolateral region, the apex and the inferior apex as well. Left ventricular systolic function is abnormal with an EF of 37%. There are no high risk prognostic indicators present. The ECG portion of the study is negative for ischemia but shows an old anterior MO. There are some mild reversible inferior changes as well that may represent limited ishemia. Comparison is made with a prior study completed 2012. Ejection fraction was 32%. There are no significant changes. A similar perfusion pattern was seen at that time. In aggregate the current study is intermediate risk in regards to predicted annual cardiovascular mortality rate. ASSESSMENT/PLAN ASSESSMENT/PLAN 1. Abd pain: possible enteritis. pipida pending for today. 09/2018 CT [facility] noted with cholelithiasis 2. Ischemic cardiomyopathy: EF 25% unchanged by comparison 3. Chronic systolic CHF: NYHA 1-2, compensated 4. CAD: past stents, clinically stable. 5. HTN: controlled 6. HLP 7. AICD in situ: medtronic Recommendations 1. Continue with secondary prevention including entresto. 2. Records reviewed above. Will interrogate device. Obtain baseline EKG. 3. Cardiac tompkins he is stable, and will defer any further imaging or stress test to his cathode washer Dr. Vásquez. 4. Lasix PRN. daily wt Strict I & O 2L FR DEEPIKA MARIA MD 05/28/19 0750: CARDIAC CONSULT ASSESSMENT/PLAN ASSESSMENT/PLAN Patient seen and examined 05/27/19. Agree with MANUFACTURING DEVELOPMENT ENGINEER's assessment and plan. 2-D echo showed LVEF 20-25% Chronic systolic heart failure clinically well compensated CAD status stable ICD interrogation normal Continue workup for abdominal pain per GI team Follow-up with primary cathode washer upon discharge Thank you for your consultation GENEVIEVE MCHUGH APRN May 27, 2019 10:52 DEEPIKA MARIA MD May 28, 2019 07:50
[2019-05-27 11:00] VITALS: BP 113/69
--- NOTE | 2019-05-27 11:19 | EKG ---
[facility] [address] [place] [address] Test Date: 2019-05-27 Test Time: 10:59:53 Pat Name: ELGIN WILLIAMSON Department: Room: 414 Gender: M Dining Service Supervisor: : 1945 Requested By: FRANK GAYTAN Order Number: [id number] Reading MD: Measurements Intervals Duncan Rate: 60 P: 0 NH: 176 QRS: -44 QRSD: 92 T: -175 QT: 374 QTc: 378 Interpretive Statements SINUS RHYTHM ABNORMAL LEFT AXIS DEVIATION R-S TRANSITION ZONE IN V LEADS DISPLACED TO THE LEFT LEFT ANTERIOR FASCICULAR BLOCK INCOMPLETE RIGHT BUNDLE BRANCH BLOCK ABNORMAL ECG RI6.01 Unconfirmed report No previous ECG available for comparison
--- NOTE | 2019-05-27 11:27 | HP ---
ADMIT DATE: 05/27/2019 LOCATION: Room 414. HISTORY OF PRESENT ILLNESS: The patient is a 74-year-old white male with history of coronary artery disease, ischemic cardiomyopathy and hyperlipidemia, notes a 2-week history of abdominal pain in the epigastric and mid abdomen area, radiates to the back at times and severe at times. Without any fever, nausea, vomiting or blood in the stool. He notes that eating makes it worse, especially after lunchtime, but his appetite has been okay and denies any weight loss. He was seen in the office yesterday. He had significant abdominal tenderness in epigastric area in the left lower quadrant, prompting admission to the hospital. He had a CAT scan of the abdomen and pelvis done, which showed no evidence of a bowel obstruction and also showed no evidence of acute diverticulitis. In addition, he had some mild full thickening of the duodenum and proximal jejunum, possibly secondary to enteritis. His appendix was negative. He had a 1-cm hypervascular lesion in the pancreas uncinate. A possibility of an islet cell tumor of the pancreas or an aneurysm was mentioned by the radiologist. He also has a 3-cm fatty umbilical hernia noted. He says he feels a little better this morning. He is therefore admitted for further evaluation of his abdominal pain. ALLERGIES: INCLUDE RAMIPRIL AND THIMEROSAL. MEDICATIONS: Prior to admission include still working on aspirin 81 mg every day, atorvastatin 20 mg every day, Entresto 49-51 mg 1 b.i.d., Flomax 0.4 mg b.i.d. He is on metoprolol succinate 25 mg every day, multivitamin every day, Plavix 75 mg every day, Protonix 40 mg every day and spironolactone 25 mg every day. PAST HISTORY: Significant for coronary artery disease and hyperlipidemia, ischemic cardiomyopathy. He has a small hiatal hernia. He has had hypertension in the past, osteoarthritis, benign prostatic hypertrophy. He had a PTCA and stent x 2 through the LAD in 2005. He has an AICD placed in 2007 and right shoulder arthroscopic surgery in 2007. He had an EGD and colonoscopy in 2014 and the colonoscopy showed diverticulosis. FAMILY HISTORY: Father had COPD and mother had myocardial infarction and lung cancer. SOCIAL HISTORY: He does not drink alcohol nor does he smoke cigarettes. He is . REVIEW OF SYSTEMS: GENERAL: He denies any fever, chills or sweats in the last 3 days. CARDIOVASCULAR: No chest pain. PULMONARY: No cough or shortness of breath. GASTROINTESTINAL: Abdominal pain. ENDOCRINE: No diabetes mellitus. SKIN: No rashes. The rest of systems reviewed are negative except as stated in the history of present illness. PHYSICAL EXAMINATION: VITAL SIGNS: Temperature is 99 degrees, pulse 74, respiratory rate 14, blood pressure 100/61, oxygen saturation 98% on room air. HEENT: Eyes: Gaze is conjugate. Mouth: Tongue is midline. NECK: There is no cervical lymphadenopathy or thyroid enlargement. HEART: Reveals an S1, S2. There is no S3 or murmur. LUNGS: Clear. ABDOMEN: Soft, bowel sounds positive. He does have tenderness in the epigastric area, but no further tenderness in the left lower quadrant. EXTREMITIES: Lower extremities without edema. SKIN: No rashes. NEUROLOGIC: Revealed no facial weakness or focal weakness in arms or legs. An EKG was ordered, but I do not see the report on the chart. He had a chest x-ray, which showed a left basilar subsegmental atelectasis and an AICD was noted. CAT scan of the abdomen and pelvis is as stated above. Review of his laboratory tests: His white count is 4.3, hemoglobin 14.4 with a platelet count of 138,000, 67 polys and 20 lymphocytes. His sodium is 143, potassium 3.9, chloride 109, total CO2 is 25, BUN 14, creatinine 1.1. Liver function tests were normal. Sugar was 84. Amylase and lipase were normal. ASSESSMENT: 1. Abdominal pain, which is now localized to the epigastric area. 2. Some thickening of the duodenal and jejunal folds on a CAT scan of the abdomen and pelvis. 3. A 1-cm hypervascular lesion in the uncinate of the pancreas. 4. Coronary artery disease. 5. Ischemic cardiomyopathy. 6. Hyperlipidemia. PLAN: At this time is to consult Dr. Chakraborty, who has already seen the patient and also Dr. Meng for GI and Dr. Ugalde for Cardiology. He did have an echocardiogram done, which showed a left ventricular ejection fraction 20-25%; the previous one was 30% in the past. We will advance him to a clear liquid diet, discontinue the IV fluids with his cardiomyopathy and we will get an ultrasound of his abdomen to look at his gallbladder. Also, consider scan. I believe he takes Flomax twice a day at home, but his blood pressure is around 100, so we will continue to once a day instead of twice a day, continue the spironolactone and the Entresto for his cardiomyopathy and also continue metoprolol for that. Continue the aspirin. The Plavix is on hold for the moment in case he should need surgery, but we can defer that and also continue with Protonix and analgesics as needed. FRANK GAYTAN MD DR: SHERIE/batsheva JOB#: [id number] / [id number]
--- NOTE | 2019-05-27 12:00 | NUR ---
SS following for discharge planning. SS reviewed pt chart. Pt is from home with spouse and is currently on room air. No discharge needs noted at this time. SS will continue to follow for discharge planning.
[2019-05-27] MEDS ORDERED: SINCALIDE 1.45 MCG in IV NORMAL SALINE 50ML 30 ML IV ONE (14:30)
[2019-05-27 15:00] VITALS: BP 109/66
--- NOTE | 2019-05-27 16:55 | RAD ---
Exam performed: Nuclear medicine hepatobiliary scan. History: Abdominal pain Comparison: None available FINDINGS: Following intravenous administration of 5.5 mCi of Choletec tagged with Tc, sequential gamma camera images of the right upper quadrant of the abdomen were obtained. There is prompt accumulation of radionuclide in the liver which appears to be unremarkable Prompt accumulation in the central intrahepatic biliary radicals, gallbladder, common bile duct and small bowel is noted. Patient was also infused with 1.4mcg of CCK and gallbladder ejection fraction was calculated which measures 92%. Impression: 1.Normal nuclear hepatobiliary scan with gallbladder ejection fraction measuring 92%. Electronically signed by: John Busch MD (05/27/2019 4:52 PM) [id number]
--- NOTE | 2019-05-27 17:16 | RAD ---
Examination: ABDOMEN COMPLETE History: Right upper quadrant pain Comparison/Correlation: None Findings: Upper abdominal ultrasound exam was performed. Liver measures 14.3 cm longitudinal. Mild fatty infiltration of liver noted. Common bile duct measures 0.7 cm diameter. No biliary dilatation. Proximal pancreas is unremarkable. Distal pancreas is obscured by bowel gas. Portal venous flow is unremarkable. Right kidney measures 10.5 cm x 5.5 cm x 5.3 cm. Left kidney measures 10.2 cm x 5.1 cm x 4.7 cm. No hydronephrosis or nephrolithiasis. Gallbladder is unremarkable with no cholelithiasis. Spleen measures 9.1 cm longitudinal. Abdominal aortic diameter of up to 1.9 cm present. Visualized proximal aorta is unremarkable. Inferior vena cava is unremarkable. No upper abdominal ascites. Impression: Mild fatty infiltration of liver. Unremarkable exam otherwise. Electronically signed by: Stanislaw Grullon MD (05/27/2019 5:13 PM) [facility]
[2019-05-27 19:00] VITALS: BP 105/68
[2019-05-27] MEDS: ATORVASTATIN CALCIUM 20 MG TABLET PO SCH (21:17)
[2019-05-27 23:00] VITALS: BP 86/52
--- NOTE | 2019-05-27 23:15 | NUR ---
RN paged Dr. Lynn @ 2049 for the patients BP of 86/52 HR 68, answering service called RN back and stated that Dr. Curiel is oncology patient navigator and was given his home number. RN called Veena at his home, no orders received and was told to contact Leah at his home. Nursing building maintenance supervisor was paged for MD's home number but the only number on file is the answering service. Patients BP was rechecked at that time 97/57 BP 58. RN will continue to monitor patient closely.
[2019-05-28 02:32] VITALS: BP 94/58
[2019-05-28 04:41] LABS: BASO % 1 % (0-3); EOS # 0.1 x10^3/uL (0.0-0.7); EOS % 2 % (0-3); HEMATOCRIT 42.3 % (39.0-53.0); HEMOGLOBIN 14.3 g/dL (13.0-17.5); LYMPH # 0.9 x10^3/uL (1.0-4.8); LYMPH % 19 % (24-48); MEAN CORPUSCULAR HEMOGLOBIN 32 pg (25-35); MEAN CORPUSCULAR HGB CONC 34 g/dL (31-37); MEAN CORPUSCULAR VOLUME 95 fL (79-100); MONO # 0.4 x10^3/uL (0.0-1.1); MONO % 10 % (0-9); NEUT # 3.2 x10^3/uL (1.8-7.7); NEUT % 69 % (31-73); PLATELET COUNT 133 x10^3/uL (140-400); RED BLOOD COUNT 4.47 x10^6/uL (4.30-5.70); RED CELL DISTRIBUTION WIDTH 12.6 % (11.5-14.5); WHITE BLOOD COUNT 4.6 x10^3/uL (4.0-11.0)
[2019-05-28 05:05] LABS: CALCIUM 8.5 mg/dL (8.5-10.1); POTASSIUM 3.9 mmol/L (3.5-5.1)
[2019-05-28] MEDS: PANTOPRAZOLE 40 MG TABLET.DR. PO SCH (06:16)
[2019-05-28 07:00] VITALS: BP 105/63
[2019-05-28] MEDS: TAMSULOSIN 0.4 MG CAP.ER.24H. PO SCH (08:58)
[2019-05-28] MEDS: ASPIRIN CHEWABLE 81 MG TABLET. PO SCH (08:58)
[2019-05-28] MEDS: SPIRONOLACTONE 25 MG TABLET PO SCH (08:58)
[2019-05-28] MEDS: SACUBITRIL/VALSARTAN 49/51MG TABLET. PO SCH (08:59)
[2019-05-28] MEDS: METOPROLOL SUCC 24HR ER 25 MG TAB.ER.24H. PO SCH (09:00)
--- NOTE | 2019-05-28 09:34 | PDOC ---
CRICKET DE LOS SANTOS AIR TOOL OPERATOR 05/28/19 0934: SURGICAL PROGRESS NOTE Subjective mild RUQ pain tolerating diet, does not seem to aggravate pain no n/v Vital Signs Vital Signs Date Time Temp Pulse Resp B/P (MAP) Pulse Ox O2 Delivery O2 Flow Rate FiO2 05/28/19 09:00 62 105/63 05/28/19 07:00 97.6 14 95 Room Air 97.6 I&O Intake and Output 05/28/19 07:00 Intake Total 910 ml Output Total 275 ml Balance 635 ml Intake Oral 910 ml Output Urine Total 275 ml # Voids 5 General: Alert, Oriented X3, Cooperative, No acute distress Abdomen: Soft, Other (mild ttp ruq) Labs Laboratory Tests Test 05/26/19 19:15 05/27/19 05:40 05/28/19 03:20 White Blood Count 4.8 x10^3/uL (4.0-11.0) 4.2 x10^3/uL (4.0-11.0) 4.6 x10^3/uL (4.0-11.0) Red Blood Count 4.62 x10^6/uL (4.30-5.70) 4.49 x10^6/uL (4.30-5.70) 4.47 x10^6/uL (4.30-5.70) Hemoglobin 14.9 g/dL (13.0-17.5) 14.4 g/dL (13.0-17.5) 14.3 g/dL (13.0-17.5) Hematocrit 43.4 % (39.0-53.0) 42.4 % (39.0-53.0) 42.3 % (39.0-53.0) Mean Corpuscular Volume 94 fL (79-100) 94 fL (79-100) 95 fL (79-100) Mean Corpuscular Hemoglobin 32 pg (25-35) 32 pg (25-35) 32 pg (25-35) Mean Corpuscular Hemoglobin Concent 34 g/dL (31-37) 34 g/dL (31-37) 34 g/dL (31-37) Red Cell Distribution Width 12.4 % (11.5-14.5) 12.7 % (11.5-14.5) 12.6 % (11.5-14.5) Platelet Count 137 x10^3/uL (140-400) 138 x10^3/uL (140-400) 133 x10^3/uL (140-400) Neutrophils (%) (Auto) 64 % (31-73) 67 % (31-73) 69 % (31-73) Lymphocytes (%) (Auto) 23 % (24-48) 20 % (24-48) 19 % (24-48) Monocytes (%) (Auto) 10 % (0-9) 11 % (0-9) 10 % (0-9) Eosinophils (%) (Auto) 2 % (0-3) 2 % (0-3) 2 % (0-3) Basophils (%) (Auto) 1 % (0-3) 1 % (0-3) 1 % (0-3) Neutrophils # (Auto) 3.0 x10^3/uL (1.8-7.7) 2.8 x10^3/uL (1.8-7.7) 3.2 x10^3/uL (1.8-7.7) Lymphocytes # (Auto) 1.1 x10^3/uL (1.0-4.8) 0.9 x10^3/uL (1.0-4.8) 0.9 x10^3/uL (1.0-4.8) Monocytes # (Auto) 0.5 x10^3/uL (0.0-1.1) 0.5 x10^3/uL (0.0-1.1) 0.4 x10^3/uL (0.0-1.1) Eosinophils # (Auto) 0.1 x10^3/uL (0.0-0.7) 0.1 x10^3/uL (0.0-0.7) 0.1 x10^3/uL (0.0-0.7) Basophils # (Auto) 0.0 x10^3/uL (0.0-0.2) 0.0 x10^3/uL (0.0-0.2) 0.0 x10^3/uL (0.0-0.2) Sodium Level 142 mmol/L (136-145) 143 mmol/L (136-145) 142 mmol/L (136-145) Potassium Level 3.9 mmol/L (3.5-5.1) 3.9 mmol/L (3.5-5.1) 3.9 mmol/L (3.5-5.1) Chloride Level 108 mmol/L (98-107) 109 mmol/L (98-107) 109 mmol/L (98-107) Carbon Dioxide Level 25 mmol/L (21-32) 25 mmol/L (21-32) 22 mmol/L (21-32) Anion Gap 9 (6-14) 9 (6-14) 11 (6-14) Blood Urea Nitrogen 17 mg/dL (8-26) 14 mg/dL (8-26) 15 mg/dL (8-26) Creatinine 1.1 mg/dL (0.7-1.3) 1.1 mg/dL (0.7-1.3) 1.0 mg/dL (0.7-1.3) Estimated GFR (Cockcroft-Gault) 65.4 65.4 73.0 BUN/Creatinine Ratio 15 (6-20) Glucose Level 84 mg/dL (70-99) 95 mg/dL (70-99) 81 mg/dL (70-99) Calcium Level 8.7 mg/dL (8.5-10.1) 8.7 mg/dL (8.5-10.1) 8.5 mg/dL (8.5-10.1) Total Bilirubin 0.7 mg/dL (0.2-1.0) Aspartate Amino Transf (AST/SGOT) 19 U/L (15-37) Alanine Aminotransferase (ALT/SGPT) 22 U/L (16-63) Alkaline Phosphatase 65 U/L (46-116) Total Protein 6.7 g/dL (6.4-8.2) Albumin 3.7 g/dL (3.4-5.0) Albumin/Globulin Ratio 1.2 (1.0-1.7) Amylase Level 50 U/L (25-115) Lipase 140 U/L (73-393) Laboratory Tests Test 05/28/19 03:20 White Blood Count 4.6 x10^3/uL (4.0-11.0) Red Blood Count 4.47 x10^6/uL (4.30-5.70) Hemoglobin 14.3 g/dL (13.0-17.5) Hematocrit 42.3 % (39.0-53.0) Mean Corpuscular Volume 95 fL (79-100) Mean Corpuscular Hemoglobin 32 pg (25-35) Mean Corpuscular Hemoglobin Concent 34 g/dL (31-37) Red Cell Distribution Width 12.6 % (11.5-14.5) Platelet Count 133 x10^3/uL (140-400) Neutrophils (%) (Auto) 69 % (31-73) Lymphocytes (%) (Auto) 19 % (24-48) Monocytes (%) (Auto) 10 % (0-9) Eosinophils (%) (Auto) 2 % (0-3) Basophils (%) (Auto) 1 % (0-3) Neutrophils # (Auto) 3.2 x10^3/uL (1.8-7.7) Lymphocytes # (Auto) 0.9 x10^3/uL (1.0-4.8) Monocytes # (Auto) 0.4 x10^3/uL (0.0-1.1) Eosinophils # (Auto) 0.1 x10^3/uL (0.0-0.7) Basophils # (Auto) 0.0 x10^3/uL (0.0-0.2) Sodium Level 142 mmol/L (136-145) Potassium Level 3.9 mmol/L (3.5-5.1) Chloride Level 109 mmol/L (98-107) Carbon Dioxide Level 22 mmol/L (21-32) Anion Gap 11 (6-14) Blood Urea Nitrogen 15 mg/dL (8-26) Creatinine 1.0 mg/dL (0.7-1.3) Estimated GFR (Cockcroft-Gault) 73.0 Glucose Level 81 mg/dL (70-99) Calcium Level 8.5 mg/dL (8.5-10.1) Assessment/Plan normal HIDA, EF 92% will review with Dr Chakraborty--pancreatic lesion--could consider outpt EUS, biopsy, MRI--defer to medicine and GI no surgical indications TERE CHAKRABORTY MD 05/28/19 3515: SURGICAL PROGRESS NOTE Assessment/Plan Reviewed, agree with above; testing not suggestive of gallbladder abnormality; pancreatic lesion likely incidental; would recommend further evaluation (could be as outpatient), MRI or endoscopic ultrasound +/- FNA. CRICKET DE LOS SANTOS APRN May 28, 2019 09:34 TERE CHAKRABORTY MD May 28, 2019 13:36
--- NOTE | 2019-05-28 10:12 | PDOC ---
Subjective: Subjective: Tolerating PO. RUQ discomfort might still be there - better than before admission - was never really bad as outpt. Would often be worse after lunch at home - not necessarily after breakfast or dinner. Also might be worse with standing. 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 Objective: Vital Signs: Vital Signs Date Time Temp Pulse Resp B/P (MAP) Pulse Ox O2 Delivery O2 Flow Rate FiO2 05/28/19 09:00 62 105/63 05/28/19 07:00 97.6 14 95 Room Air 97.6 Labs: Laboratory Tests Test 05/28/19 03:20 White Blood Count 4.6 x10^3/uL Red Blood Count 4.47 x10^6/uL Hemoglobin 14.3 g/dL Hematocrit 42.3 % Mean Corpuscular Volume 95 fL Mean Corpuscular Hemoglobin 32 pg Mean Corpuscular Hemoglobin Concent 34 g/dL Red Cell Distribution Width 12.6 % Platelet Count 133 x10^3/uL Neutrophils (%) (Auto) 69 % Lymphocytes (%) (Auto) 19 % Monocytes (%) (Auto) 10 % Eosinophils (%) (Auto) 2 % Basophils (%) (Auto) 1 % Neutrophils # (Auto) 3.2 x10^3/uL Lymphocytes # (Auto) 0.9 x10^3/uL Monocytes # (Auto) 0.4 x10^3/uL Eosinophils # (Auto) 0.1 x10^3/uL Basophils # (Auto) 0.0 x10^3/uL Sodium Level 142 mmol/L Potassium Level 3.9 mmol/L Chloride Level 109 mmol/L Carbon Dioxide Level 22 mmol/L Anion Gap 11 Blood Urea Nitrogen 15 mg/dL Creatinine 1.0 mg/dL Estimated GFR (Cockcroft-Gault) 73.0 Glucose Level 81 mg/dL Calcium Level 8.5 mg/dL Imaging: US Impression: Mild fatty infiltration of liver. Unremarkable exam otherwise. HIDA Impression: 1.Normal nuclear hepatobiliary scan with gallbladder ejection fraction measuring 92%. PE: GEN: NAD LUNGS: CTAB HEART: RRR ABD: NABS, S/ND/NT NEURO/PSYCH: A & O �3 A/P: Upper abd discomfort - better Abnormal CT - mild fold thickening in duodenum and proximal jejunum, 1cm hypervascular lesion in pancreas uncinate (?islet cell tumor), and umbilical abd wall hernia -- D/w Dr. Meng- if discharge considered, could pursue outpt EUS for further evaluation of pancreatic lesion. Reviewed w/ nurse. Continue PPI for h/o GERD. TANMAY BURLESON May 28, 2019 10:12
[2019-05-28 11:00] VITALS: BP 103/54
--- NOTE | 2019-05-28 13:45 | PDOC ---
PROGRESS NOTES Subjective Subjective feels better. eats solid food. denies abdominal pain. abdominal ultrasound and hipida scan negative. lab reviewed. Objective Objective Vital Signs Date Time Temp Pulse Resp B/P (MAP) Pulse Ox O2 Delivery O2 Flow Rate FiO2 05/28/19 11:00 98.3 64 14 103/54 (70) 95 Room Air 98.3 Intake and Output 05/28/19 07:00 Intake Total 910 ml Output Total 275 ml Balance 635 ml Intake Oral 910 ml Output Urine Total 275 ml # Voids 5 Physical Exam Abdomen: Soft, Other (mild epigastric tenderness) Heart: Regular rate, Normal S1, Normal S2 Extremities: No edema General: Alert HEENT: Atraumatic Lungs: Clear to auscultation Neuro: Normal speech Psych/Mental Status: Mental status NL Skin: No rashes Assessment Assessment 1. Abdominal pain, which is now localized to the epigastric area. improved. 2. Some thickening of the duodenal and jejunal folds on a CAT scan of the abdomen and pelvis. 3. A 1-cm hypervascular lesion in the uncinate of the pancreas. 4. Coronary artery disease. 5. Ischemic cardiomyopathy. 6. Hyperlipidemia. Plan Plan of Care dismiss today Comment Review of Relevant I have reviewed the following items jasvir (where applicable) has been applied. Labs Laboratory Tests Test 05/26/19 19:15 05/27/19 05:40 05/28/19 03:20 White Blood Count 4.8 x10^3/uL (4.0-11.0) 4.2 x10^3/uL (4.0-11.0) 4.6 x10^3/uL (4.0-11.0) Red Blood Count 4.62 x10^6/uL (4.30-5.70) 4.49 x10^6/uL (4.30-5.70) 4.47 x10^6/uL (4.30-5.70) Hemoglobin 14.9 g/dL (13.0-17.5) 14.4 g/dL (13.0-17.5) 14.3 g/dL (13.0-17.5) Hematocrit 43.4 % (39.0-53.0) 42.4 % (39.0-53.0) 42.3 % (39.0-53.0) Mean Corpuscular Volume 94 fL (79-100) 94 fL (79-100) 95 fL (79-100) Mean Corpuscular Hemoglobin 32 pg (25-35) 32 pg (25-35) 32 pg (25-35) Mean Corpuscular Hemoglobin Concent 34 g/dL (31-37) 34 g/dL (31-37) 34 g/dL (31-37) Red Cell Distribution Width 12.4 % (11.5-14.5) 12.7 % (11.5-14.5) 12.6 % (11.5-14.5) Platelet Count 137 x10^3/uL (140-400) 138 x10^3/uL (140-400) 133 x10^3/uL (140-400) Neutrophils (%) (Auto) 64 % (31-73) 67 % (31-73) 69 % (31-73) Lymphocytes (%) (Auto) 23 % (24-48) 20 % (24-48) 19 % (24-48) Monocytes (%) (Auto) 10 % (0-9) 11 % (0-9) 10 % (0-9) Eosinophils (%) (Auto) 2 % (0-3) 2 % (0-3) 2 % (0-3) Basophils (%) (Auto) 1 % (0-3) 1 % (0-3) 1 % (0-3) Neutrophils # (Auto) 3.0 x10^3/uL (1.8-7.7) 2.8 x10^3/uL (1.8-7.7) 3.2 x10^3/uL (1.8-7.7) Lymphocytes # (Auto) 1.1 x10^3/uL (1.0-4.8) 0.9 x10^3/uL (1.0-4.8) 0.9 x10^3/uL (1.0-4.8) Monocytes # (Auto) 0.5 x10^3/uL (0.0-1.1) 0.5 x10^3/uL (0.0-1.1) 0.4 x10^3/uL (0.0-1.1) Eosinophils # (Auto) 0.1 x10^3/uL (0.0-0.7) 0.1 x10^3/uL (0.0-0.7) 0.1 x10^3/uL (0.0-0.7) Basophils # (Auto) 0.0 x10^3/uL (0.0-0.2) 0.0 x10^3/uL (0.0-0.2) 0.0 x10^3/uL (0.0-0.2) Sodium Level 142 mmol/L (136-145) 143 mmol/L (136-145) 142 mmol/L (136-145) Potassium Level 3.9 mmol/L (3.5-5.1) 3.9 mmol/L (3.5-5.1) 3.9 mmol/L (3.5-5.1) Chloride Level 108 mmol/L (98-107) 109 mmol/L (98-107) 109 mmol/L (98-107) Carbon Dioxide Level 25 mmol/L (21-32) 25 mmol/L (21-32) 22 mmol/L (21-32) Anion Gap 9 (6-14) 9 (6-14) 11 (6-14) Blood Urea Nitrogen 17 mg/dL (8-26) 14 mg/dL (8-26) 15 mg/dL (8-26) Creatinine 1.1 mg/dL (0.7-1.3) 1.1 mg/dL (0.7-1.3) 1.0 mg/dL (0.7-1.3) Estimated GFR (Cockcroft-Gault) 65.4 65.4 73.0 BUN/Creatinine Ratio 15 (6-20) Glucose Level 84 mg/dL (70-99) 95 mg/dL (70-99) 81 mg/dL (70-99) Calcium Level 8.7 mg/dL (8.5-10.1) 8.7 mg/dL (8.5-10.1) 8.5 mg/dL (8.5-10.1) Total Bilirubin 0.7 mg/dL (0.2-1.0) Aspartate Amino Transf (AST/SGOT) 19 U/L (15-37) Alanine Aminotransferase (ALT/SGPT) 22 U/L (16-63) Alkaline Phosphatase 65 U/L (46-116) Total Protein 6.7 g/dL (6.4-8.2) Albumin 3.7 g/dL (3.4-5.0) Albumin/Globulin Ratio 1.2 (1.0-1.7) Amylase Level 50 U/L (25-115) Lipase 140 U/L (73-393) Laboratory Tests Test 05/28/19 03:20 White Blood Count 4.6 x10^3/uL (4.0-11.0) Red Blood Count 4.47 x10^6/uL (4.30-5.70) Hemoglobin 14.3 g/dL (13.0-17.5) Hematocrit 42.3 % (39.0-53.0) Mean Corpuscular Volume 95 fL (79-100) Mean Corpuscular Hemoglobin 32 pg (25-35) Mean Corpuscular Hemoglobin Concent 34 g/dL (31-37) Red Cell Distribution Width 12.6 % (11.5-14.5) Platelet Count 133 x10^3/uL (140-400) Neutrophils (%) (Auto) 69 % (31-73) Lymphocytes (%) (Auto) 19 % (24-48) Monocytes (%) (Auto) 10 % (0-9) Eosinophils (%) (Auto) 2 % (0-3) Basophils (%) (Auto) 1 % (0-3) Neutrophils # (Auto) 3.2 x10^3/uL (1.8-7.7) Lymphocytes # (Auto) 0.9 x10^3/uL (1.0-4.8) Monocytes # (Auto) 0.4 x10^3/uL (0.0-1.1) Eosinophils # (Auto) 0.1 x10^3/uL (0.0-0.7) Basophils # (Auto) 0.0 x10^3/uL (0.0-0.2) Sodium Level 142 mmol/L (136-145) Potassium Level 3.9 mmol/L (3.5-5.1) Chloride Level 109 mmol/L (98-107) Carbon Dioxide Level 22 mmol/L (21-32) Anion Gap 11 (6-14) Blood Urea Nitrogen 15 mg/dL (8-26) Creatinine 1.0 mg/dL (0.7-1.3) Estimated GFR (Cockcroft-Gault) 73.0 Glucose Level 81 mg/dL (70-99) Calcium Level 8.5 mg/dL (8.5-10.1) Medications Current Medications Potassium Chloride/Dextrose/ Sod Cl 1,000 ml @ 60 mls/hr [id number] IV Last administered on 05/26/19at 19:47; Start 05/26/19 at 18:15; Stop 05/27/19 at 10:28; Status DC Morphine Sulfate (Morphine Sulfate) 1 mg PRN Q4HRS PRN IV PAIN; Start 05/26/19 at 18:15 Acetaminophen (Tylenol) 325 mg PRN Q6HRS PRN PO MILD PAIN / TEMP; Start 05/26/19 at 18:15 Metronidazole 100 ml @ 100 mls/hr Q8HRS IV Last administered on 05/27/19at 05:50; Start 05/26/19 at 22:00; Stop 05/27/19 at 07:19; Status DC Levofloxacin/ Dextrose 100 ml @ 100 mls/hr Q24H IV Last administered on at 19:47; Start 05/26/19 at 19:00; Stop 05/27/19 at 07:19; Status DC Aspirin (Children'S Aspirin) 81 mg DAILY PO Last administered on 05/28/19at 09:00; Start 05/27/19 at 09:00 Atorvastatin Calcium (Lipitor) 20 mg QHS PO Last administered on 05/27/19at 21:18; Start 05/26/19 at 21:00 Metoprolol Succinate (Toprol Xl) 25 mg DAILY PO Last administered on 05/28/19at 09:00; Start 05/27/19 at 09:00 Pantoprazole Sodium (Protonix) 40 mg DAILYAC PO Last administered on 05/28/19at 06:16; Start 05/27/19 at 07:30 Sacubitril/ Valsartan (Entresto 49 Mg-51 Mg) 1 tab BID PO Last administered on 05/28/19at 09:00; Start 05/26/19 at 21:00 Tamsulosin HCl (Flomax) 0.4 mg DAILY PO Last administered on 05/28/19at 09:00; Start 05/27/19 at 09:00 Spironolactone (Aldactone) 25 mg DAILY PO Last administered on 05/28/19at 09:00; Start 05/27/19 at 09:00 Iohexol (Omnipaque 300 Mg/ml) 75 ml 1X ONCE IV ; Start 05/26/19 at 23:30; Stop 05/26/19 at 23:31; Status DC Info (CONTRAST GIVEN -- Rx MONITORING) 1 each PRN DAILY PRN MC SEE COMMENTS; Start 05/26/19 at 23:15; Stop 05/28/19 at 23:14 Acetaminophen/ Hydrocodone Bitart (Lortab 5/325) 1 tab PRN Q4HRS PRN PO MO DERATE PAIN; Start 05/27/19 at 10:30 Sincalide 1.45 mcg/Sodium Chloride 30 ml @ 120 mls/hr 1X ONCE IV Last administered on 05/27/19at 15:01; Start 05/27/19 at 14:30; Stop 05/27/19 at 14:44; Status DC Active Scripts Active Reported Spironolactone 25 Mg Tablet 1 Tab PO DAILY Entresto 49 mg-51 mg Tablet (Sacubitril/Valsartan) 1 Each Tablet 1 Each PO BID NITROGLYCERIN SubLingual (Nitroglycerin) 0.4 Mg Tab.subl 1 Tab SL UD Pantoprazole Sodium (Pantoprazole Sodium) 40 Mg Tablet.dr 40 Mg PO DAILY Toprol Xl (Metoprolol Succinate) 25 Mg Tab.er.24h 25 Mg PO DAILY Flomax (Tamsulosin Hcl) 0.4 Mg Cap.er.24h 0.4 Mg PO DAILY Clopidogrel (Clopidogrel Bisulfate) 75 Mg Tablet 75 Mg PO DAILY Aspirin 81 Mg Tab.chew 81 Mg PO DAILY Atorvastatin Calcium 40 Mg Tablet 40 Mg PO HS Losartan Potassium (Losartan Potassium) 25 Mg Tablet 25 Mg PO DAILY Vitals/I & O Vital Sign - Last 24 Hours 05/27/19 05/27/19 05/27/19 05/27/19 15:00 19:00 19:35 21:18 Temp 98.3 97.9 98.3 97.9 Pulse 69 77 77 Resp 14 18 B/P (MAP) 109/66 (80) 105/68 (80) 105/68 Pulse Ox 97 95 O2 Delivery Room Air Room Air Room Air 05/27/19 05/28/19 05/28/19 05/28/19 23:00 02:32 07:00 08:00 Temp 97.7 97.9 97.6 97.7 97.9 97.6 Pulse 68 65 62 Resp 18 18 14 B/P (MAP) 86/52 (63) 94/58 (70) 105/63 (77) Pulse Ox 95 93 95 O2 Delivery Room Air Room Air Room Air Room Air 05/28/19 05/28/19 05/28/19 09:00 09:00 11:00 Temp 98.3 98.3 Pulse 62 62 64 Resp 14 B/P (MAP) 105/63 105/63 103/54 (70) Pulse Ox 95 O2 Delivery Room Air Intake and Output 05/27/19 05/27/19 05/28/19 15:00 23:00 07:00 Intake Total 210 ml 360 ml 340 ml Output Total 275 ml Balance 210 ml 360 ml 65 ml FRANK GAYTAN MD May 28, 2019 13:45
--- NOTE | 2019-05-28 13:51 | DISCH ---
DISCHARGE INSTRUCTIONS Condition on Discharge Condition on Discharge: Stable Activity After Discharge Activity Instructions for Disc: Resume previous activity Diet after Discharge Diet after Discharge: Regular Contacting the DR. after DC Call your doctor for: If your condition worsens Follow-Up Follow up with: dr. gaytan next week Follow Up With: needs endoscopic ultrasound of pancreatic lesion at [facility] as out patient FRANK GAYTAN MD May 28, 2019 13:51
--- NOTE | 2019-05-28 13:55 | PDOC ---
Provider Note Provider Note discharge summary dictated # [id number] FRANK GAYTAN MD May 28, 2019 13:55
[2019-05-28 15:00] VITALS: BP 104/66
--- NOTE | 2019-05-28 19:13 | NUR ---
Discharge Note: ELGIN WILLIAMSON [place] Discharge instructions and discharge home medications reviewed with Patient and a copy given. All questions have been answered and understanding verbalized. The following instructions and handouts were given: Discharge Instructions Discontinued lines and drains: PIV removed, Catheter intact. Patient discharged to Home with Self-Care via Private Vehicle
--- NOTE | 2019-05-29 01:28 | DS ---
DATE OF DISCHARGE: 05/28/2019 CONSULTANTS: Dr. Chakraborty, Dr. Meng and Dr. Ugalde. FINAL DIAGNOSES: 1. Epigastric abdominal pain, possibly secondary to gastritis. 2. A 1 cm pancreatic lesion in the uncinate of the pancreas, which could be either islet cell tumor or a vascular lesion. 3. Ischemic cardiomyopathy with left ventricular ejection fraction of 20-25%. He has an automatic implantable cardioverter defibrillator. 4. Coronary artery disease. 5. Hyperlipidemia. HOSPITAL COURSE: The patient is a 74-year-old white male with a history of coronary artery disease, ischemic cardiomyopathy, hyperlipidemia with a 2-week history of epigastric abdominal pain and radiates to his back at times, without any nausea, vomiting, hematemesis or black stools. Sometimes occurs after lunch time. He was seen in the office, had significant epigastric and left lower quadrant abdominal tenderness and subsequently admitted to the hospital and started initially on IV Flagyl and Levaquin with a history of diverticulosis noted on his colonoscopy 4 years ago. He underwent a CAT scan of the abdomen and pelvis, which showed some thickening of the duodenum and jejunal falls and a 1 cm lesion in the uncinate of the pancreas, which could be vascular. The patient was initially kept n.p.o. and then started on clear liquids and his diet was advanced and the abdominal pain essentially resolved. He was eating well. He was seen by Dr. Chakraborty for General Surgery and Dr. Meng for GI. He had a PIPIDA scan and ultrasound of the abdomen and showed mild fatty liver. Gallbladder was fine and gallbladder functioning normally with ____ scan. He was doing fine and it was felt that he needed an outpatient endoscopic ultrasound of his pancreatic lesion, which was discussed with him and that can be done as an outpatient at [facility]. He will be dismissed and he had an echocardiogram which showed left ventricular ejection fraction 20-25%. He is already taking metoprolol and Entresto. He will be dismissed to home on same medications he was taking prior to admission including aspirin 81 mg every day; atorvastatin 20 mg every day; Entresto 49/51 mg 1 b.i.d.; Flomax 0.4 mg, actually he takes it b.i.d., now once a day; metoprolol succinate 25 mg every day; multiple vitamin once a day; Plavix 75 mg every day; Protonix 40 mg every day; spironolactone 25 mg every day. He will make an appointment to see Dr. Lynn in the office next week and will schedule an outpatient endoscopic ultrasound to check his pancreatic lesion. This was discussed with him and he is aware that he needs to get this done. FRANK LYNN MD DR: SHERIE/batsheva JOB#: [id number] / [id number]
== END 2019-05-28 18:45 | disposition home or self-care (01) | DRG 392 ==
LOC: 4 NORTH 17:18
PROVIDERS: ADMIT Internal Medicine; ATTEND Internal Medicine
PROC: 4B02XSZ Measurement of Cardiac Pacemaker, External Approach (ICD-10-PCS; principal; 2019-05-27)
DX: K29.70 Gastritis, unspecified, without bleeding (principal); I50.22 Chronic systolic (congestive) heart failure; J98.11 Atelectasis; M19.90 Unspecified osteoarthritis, unspecified site; I25.10 Atherosclerotic heart disease of native coronary artery without angina pectoris; I25.5 Ischemic cardiomyopathy; E78.5 Hyperlipidemia, unspecified; K76.0 Fatty (change of) liver, not elsewhere classified; K42.9 Umbilical hernia without obstruction or gangrene; N40.0 Benign prostatic hyperplasia without lower urinary tract symptoms; K21.9 Gastro-esophageal reflux disease without esophagitis; D69.6 Thrombocytopenia, unspecified; K43.9 Ventral hernia without obstruction or gangrene; I48.91 Unspecified atrial fibrillation; I11.0 Hypertensive heart disease with heart failure; D13.7 Benign neoplasm of endocrine pancreas; Z85.828 Personal history of other malignant neoplasm of skin; Z79.899 Other long term (current) drug therapy; Z95.5 Presence of coronary angioplasty implant and graft; Z95.810 Presence of automatic (implantable) cardiac defibrillator; Z82.5 Family history of asthma and other chronic lower respiratory diseases; Z80.1 Family history of malignant neoplasm of trachea, bronchus and lung; Z82.49 Family history of ischemic heart disease and other diseases of the circulatory system
CPT/HCPCS: 36415; 71046; 74177; 76700; 78227; 80048; 80053; 82150; 83690; 85025; 93005; 93306; A9537; J1956; J2805; J3490; G0378